=== PATIENT | male | born 1975 | race Hispanic/Latino ===

== ENCOUNTER 2024-11-06 03:31 | Emergency (ER) | payer OTHER, SELFPAY | END 2024-11-06 04:19 | disposition home or self-care (01) | LOC: BURERS 03:31 | DX: F43.0 Acute stress reaction (principal); I10 Essential (primary) hypertension; E11.9 Type 2 diabetes mellitus without complications; F17.210 Nicotine dependence, cigarettes, uncomplicated | CPT/HCPCS: 93005; 99284 ==